=== PATIENT | male | born 1960 | race African-American/Black ===

== ENCOUNTER 2018-04-24 19:17 | Emergency (ER) | payer BC ==
[2018-04-24 19:24] VITALS: TEMP 98; BMI 47.3
--- NOTE | 2018-04-24 19:26 | PDOC ---
Rapid Medical Evaluation Time Seen by Provider: 04/24/18 19:20 Medical Evaluation: 04/24/18 19:21 I have performed a brief in-person evaluation of this patient. The patient presents with a chief complaint of: "cyst" to L chest x 2 days, ruptured spontaneously today w/ sig pus per pt. No trauma to area, denies f/c. H /o HTN Pertinent physical exam findings:Tachy to 130 w/ large area of cellulitis to L chest I have ordered the following:labs The patient will proceed to the ED for further evaluation. Discharge Disposition - Diagnosis Cellulitis Qualifiers: Site of cellulitis: unspecified site Qualified Code(s): L03.90 - Cellulitis, unspecified - Referrals - Patient Instructions - Post Discharge Activity
[2018-04-24 19:58] LABS: BASO % 1.5 % (0-2.0); EOS % 2.6 % (0-4.5); HEMATOCRIT 42.3 % (35.4-49); HEMOGLOBIN 14.6 GM/dL (11.7-16.9); LYMPH % 13.9 % (8-40); MCH 30.3 pg (25.7-33.7); MCHC 34.5 g/dl (32.0-35.9); MEAN PLT VOLUME 8.9 fl (7.5-11.1); PLATELET COUNT 221 K/MM3 (134-434); RBC 4.81 M/mm3 (4.00-5.60); RDW 13.5 % (11.9-15.9); WHITE BLOOD COUNT 15.4 K/mm3 (4.0-10.0)
--- NOTE | 2018-04-24 20:23 | PDOC ---
History of Present Illness - General History Source: Patient Exam Limitations: No Limitations - History of Present Illness Initial Comments: 04/24/18 20:22 Pt is a 58yo M with PMH of Asthma presenting to ED with complaints of draining abscess on the L side of the abdomen. Pt states he noticed a small boil on the side of his abdomen 2 days ago. He states that it started draining last night and has not stopped. He denies having a boil like this in the past. Endorses chills. Denies fevers, abdominal pain, other abscesses, history of HIV, IV drug use, injury, bug bites, trauma. PMH: see hpi Meds: albuterol, prednisone <Yoselyn Madrid - Last Filed: 04/25/18 01:09> <Irais Stark - Last Filed: 04/27/18 12:26> - General Chief Complaint: Abscess Boil Stated Complaint: CYST Time Seen by Provider: 04/24/18 19:20 Past History - Past Medical History Anemia: Yes COPD: No HTN: Yes - Suicide/Smoking/Psychosocial Hx Smoking History: Never smoked <Yoselyn Madrid - Last Filed: 04/25/18 01:09> <Irais Stark - Last Filed: 04/27/18 12:26> - Past Medical History Allergies/Adverse Reactions: Allergies Allergy/AdvReac Type Severity Reaction Status Date / Time No Known Allergies Allergy Verified 04/24/18 19:25 Home Medications: Ambulatory Orders Cephalexin Monohydrate [Keflex -] 500 mg PO QID #40 capsule 04/24/18 Sulfamethoxazole/Trimethoprim [Bactrim Ds -] 1 tab PO BID #20 tablet 04/24/18 Review of Systems - Review of Systems Constitutional: Yes: Chills. No: Fever, Loss of Appetite, Weakness HEENTM: No: Symptoms Reported Respiratory: No: Cough, Shortness of Breath Cardiac (ROS): No: Chest Pain, Edema, Lightheadedness, Palpitations ABD/GI: No: Blood Streaked Bowels, Constipated, Diarrhea, Nausea, Vomiting, Abdominal cramping : No: Symptoms Reported Musculoskeletal: No: Symptoms Reported Integumentary: Yes: Symptoms Reported, Other (abscess with drainage x 2 days) Neurological: No: Symptoms reported <Yoselyn Madrid - Last Filed: 04/25/18 01:09> *Physical Exam - Vital Signs Last Vital Signs Temp Pulse Resp BP Pulse Ox 98.0 F 125 H 18 130/83 95 04/24/18 19:21 04/24/18 19:21 04/24/18 19:21 04/24/18 19:21 04/24/18 19:21 - Physical Exam General Appearance: Yes: Appropriately Dressed, Obese. No: Apparent Distress HEENT: positive: EOMI, CONNIE, Normal ENT Inspection Neck: positive: Trachea midline, Supple. negative: Lymphadenopathy (R), Lymphadenopathy (L) Respiratory/Chest: positive: Lungs Clear, Normal Breath Sounds. negative: Crackles, Rales, Rhonchi, Stridor, Wheezing Cardiovascular: positive: Regular Rate, S1, S2, Tachycardia. negative: Edema, JVD, Murmur Vascular Pulses: Carotid (R): 2+, Carotid (L): 2+, Dorsalis-Pedis (R): 2+, Doralis-Pedis (L): 2+ Gastrointestinal/Abdominal: positive: Soft, Protuberent. negative: Pulsatile Mass, Distended, Guarding, Rebound, Tenderness, Mass Musculoskeletal: positive: Normal Inspection. negative: CVA Tenderness Extremity: positive: Normal Capillary Refill Integumentary: positive: Normal Color, Dry, Warm, Other (1mm lesion with active drainage of pus with surrounding desquamation and erythema. Firm border, no fluctuance. ) Neurologic: positive: manager program II-XII NML intact, Fully Oriented, Alert, Normal Mood/ Affect, Normal Response, Motor Strength 5/5 <Yoselyn Madrid - Last Filed: 04/25/18 01:09> - Vital Signs Last Vital Signs Temp Pulse Resp BP Pulse Ox 98.0 F 108 H 18 134/92 95 04/24/18 19:21 04/24/18 22:28 04/24/18 19:21 04/24/18 22:29 04/24/18 22:29 <Irais Stark - Last Filed: 04/27/18 12:26> Moderate Sedation - Procedure Monitoring Vital Signs: Procedure Monitoring Vital Signs Temperature 98.0 F 04/24/18 19:21 Pulse Rate 125 H 04/24/18 19:21 Respiratory Rate 18 04/24/18 19:21 Blood Pressure 130/83 04/24/18 19:21 O2 Sat by Pulse Oximetry (%) 95 04/24/18 19:21 <Yoselyn Madrid - Last Filed: 04/25/18 01:09> - Procedure Monitoring Vital Signs: Procedure Monitoring Vital Signs Temperature 98.0 F 04/24/18 19:21 Pulse Rate 108 H 04/24/18 22:28 Respiratory Rate 18 04/24/18 19:21 Blood Pressure 134/92 04/24/18 22:29 O2 Sat by Pulse Oximetry (%) 95 04/24/18 22:29 <Irais Stark - Last Filed: 04/27/18 12:26> Procedures - Incision and Drainage I&D Site: Left: Torso, Abdomen Betadine cleansed: No Anesthesia: 1% Lidocaine Volume(ml): 5 Blade Size: 11 Attempts: 1 Plain Packing: No Complications: none Dressing: Yes Progress: 04/27/18 12:26 copious purulence expelled, deloculated with hemostat. <Irais Stark - Last Filed: 04/27/18 12:26> ED Treatment Course - LABORATORY CBC & Chemistry Diagram: 04/24/18 19:35 04/24/18 19:35 - ADDITIONAL ORDERS Additional order review: 04/24/18 19:35 RBC 4.81 MCV 88.0 MCHC 34.5 RDW 13.5 MPV 8.9 Neutrophils % 74.0 Lymphocytes % 13.9 Monocytes % 8.0 Eosinophils % 2.6 Basophils % 1.5 <Yoselyn Madrid - Last Filed: 04/25/18 01:09> - LABORATORY CBC & Chemistry Diagram: 04/24/18 19:35 04/24/18 19:35 - ADDITIONAL ORDERS Additional order review: 04/24/18 20:01 Gram Stain - Final Abscess Wound Culture - Final Presumptive Mrsa (Pbp2a Pos) 04/24/18 20:01 Gram Stain - Final Abscess Wound Culture - Final Mr S Aureus 04/24/18 19:35 RBC 4.81 MCV 88.0 MCHC 34.5 RDW 13.5 MPV 8.9 Neutrophils % 74.0 Lymphocytes % 13.9 Monocytes % 8.0 Eosinophils % 2.6 Basophils % 1.5 - Medications Given in the ED: ED Medications Discontinued Medications Generic Name Dose Route Start Last Admin Trade Name Freq PRN Reason Stop Dose Admin Acetaminophen 975 mg 04/24/18 22:18 04/24/18 22:25 Tylenol - PO 04/24/18 22:19 975 mg ONCE ONE Administration Cephalexin HCl 500 mg 04/24/18 21:58 04/24/18 22:25 Keflex - PO 04/24/18 21:59 500 mg ONCE ONE Administration Sodium Chloride 1,000 mls @ 1,000 mls/hr 04/24/18 22:18 04/24/18 22:25 Normal Saline - IV 04/24/18 23:17 Not Given ASDIR STA Ibuprofen 600 mg 04/24/18 21:20 04/24/18 21:23 Motrin - PO 04/24/18 21:21 600 mg ONCE ONE Administration Trimethoprim/Sulfamethoxazole 1 each 04/24/18 21:58 04/24/18 22:24 Bactrim Ds - PO 04/24/18 21:59 1 each ONCE ONE Administration <Irais Stark - Last Filed: 04/27/18 12:26> Medical Decision Making - Medical Decision Making 04/25/18 01:13 Pt is a 58yo M with PMH of Asthma presenting to ED with complaints of draining abscess on the L side of the abdomen. Vitals: afebrile, HR 125. PE: circular area of blanching erythema on LUQ of abdomen with inner circumscribed desquamated region (due to friction) and small area of drainage. Firm. No fluctuance. CBC and CMP ordered by RME. Pt has WBC of 15. Blood cultures and sepsis work up not necessary at this time. Order was placed but cancelled. Pt is well appearing and afebrile. WBC is most likely from abscess which feels superficial and is not causing great discomfort to the patient. Purulent material expressed. Pt given Motrin. POCUS showed irregular border of abscess. I+D performed. Pt given Tylenol, Bactrim and Keflex in ED. Pt refused IV fluids. Repeat vitals showed pt still slightly tachycardic. Otherwise vitals wnl. Rx for Bactrim and Keflex sent to pharmacy. Cultures obtained. Pt DC home. Will follow up in ED in 2 days. Given strict return precautions. <Yoselyn Madrid - Last Filed: 04/25/18 01:09> *DC/Admit/Observation/Transfer - Discharge Dispostion Decision to Admit order: No <Yoselyn Madrid - Last Filed: 04/25/18 01:09> <Irais Stark - Last Filed: 04/27/18 12:26> Diagnosis at time of Disposition: Abscess Cellulitis Qualifiers: Site of cellulitis: unspecified site Qualified Code(s): L03.90 - Cellulitis, unspecified - Discharge Dispostion Disposition: HOME Condition at time of disposition: Improved - Prescriptions Prescriptions: Cephalexin Monohydrate [Keflex -] 500 mg PO QID #40 capsule Sulfamethoxazole/Trimethoprim [Bactrim Ds -] 1 tab PO BID #20 tablet - Patient Instructions Printed Discharge Instructions: DI for Skin Abscess Additional Instructions: You were seen in the emergency room today for an abscess. We opened up the abscess more to help it drain. You were given antibiotics here in the emergency room and a prescription was sent to your pharmacy. You have two antibiotics. Please take as directed for 10 days. Please stop taking it if you develop a rash or have a reaction to the medication. Come back to the emergency room in two days for wound check. You can take Tylenol or ibuprofen for pain as needed Come back to the emergency room if the redness gets worse, there is more swelling, the wound looks more infected, you develop fever or if any new concerning symptom develops. Thank you
[2018-04-24 20:43] LABS: ALBUMIN 3.4 g/dl (3.4-5.0); ALK PHOS 84 U/L (45-117); ANION GAP 10 MMOL/L (8-16); BILIRUBIN,TOTAL 1.3 mg/dL (0.2-1); BLOOD UREA NITROGEN 12 mg/dL (7-18); CALCIUM 8.7 mg/dL (8.5-10.1); CHLORIDE 106 mmol/L (98-107); CO2 25 mmol/L (21-32); GLUCOSE,RANDOM 92 mg/dL (74-106); SGPT/ALT 28 U/L (13-61); SODIUM 141 mmol/L (136-145); TOT PROT 6.9 g/dl (6.4-8.2)
[2018-04-24 20:44] LABS: POTASSIUM 3.7 mmol/L (3.5-5.1); SGOT/AST 29 U/L (15-37)
[2018-04-24] MEDS ORDERED: IBUPROFEN 600 MG TABLET (FP) PO ONE ×2 (21:20→21:24)
--- NOTE | 2018-04-24 21:21 | PDOC ---
Attending Attestation - Resident Resident Name: Yoselyn Madrid - ED Attending Attestation I have performed the following: I have examined & evaluated the patient, The case was reviewed & discussed with the resident, I agree w/resident's findings & plan - HPI HPI: 04/24/18 21:54 58YOM, with a significant past medical history of asthma and HTN, who presents to the emergency department with, 2 days of an abscess to the left upper- abdomen with associated mild chills, but no fever. Patient notes the abscess has since ruptured draining purulent discharge, prompting his arrival. He denies any recent fevers, headache or dizziness. He denies any recent nausea , vomit, diarrhea or constipation. He denies any recent chest pain or shortness of breath. He denies any recent dysuria, frequency, urgency or hematuria. No sick contacts or travel. No new changes in medications. no trauma or insect bites. Allergies: None Past Medical History: asthma and HTN Social history: Lives with family. No tobacco, ETOH or drug use. Surgical history: None - Physicial Exam PE: 04/24/18 21:55 NAD, well appearing, nontoxic. PERRL, EOMI, MMM, nl conjunctiva, anicteric; neck supple. lungs clear, RRR, abdomen soft nontender. +LUQ/abdomen with Moderately sized of area of induration, firmness, erythema, and purulent discharge with surrounding cellulitis and superficial desquamation. GOODSON x4, no focal neuro deficits. No peripheral edema. normal color for ethnicity, WWP. - Medical Decision Making 04/24/18 21:55 hpi as documented VS with tachycardia; otherwise wnl, no fever. does not appear septic labs and lytes remarkable for leukocytosis, which goes with the left upper abdomen cellulitis/actively draining abscess. given motrin for pain. bedside soft tissue sono for abscess in left upper abdomen, notable for soft tissue edema and hypoechoic area and fluid collection. some cobblestoning. consistent with abscess/cellulitis that could be MRSA (so will cover) bactrim and keflex x 10 day course I&D performed at bedside to facilitate the drainage. wound cultures obtained. uncomplicated procedure VS improved on recheck. remains comfortable, pain control and well appearing. ED return in 2 days for wound recheck, f/u cultures obtained 04/24/18 22:08 04/24/18 22:10 04/24/18 22:15 Procedures - Bedside Ultrasound Bedside Ultrasound: Skin Remarks: 04/24/18 22:13 POCUS MSK performed at bedside for left upper abdomen cellulitis/s/s infection. views obtained: left upper abdomen soft tissue. findings include cobblestoning and small fluid/hypoechoic collection with irregular borders. Impression: left upper abdomen abscess/cellulitis
[2018-04-24] MEDS ORDERED: SULFAMETHOXAZOLE/TRIMETHOPRIM 800MG/160MG D.S. TABLET PO ONE (21:58)
[2018-04-24] MEDS ORDERED: CEPHALEXIN MONOHYDRATE 500 MG CAPSULE (UD) PO ONE (21:58)
[2018-04-24] MEDS ORDERED: SODIUM CHLORIDE 1,000 ML IV STA (22:18)
[2018-04-24] MEDS ORDERED: ACETAMINOPHEN 500 MG TABLET (FP) PO ONE (22:18)
[2018-04-24] MEDS ORDERED: ACETAMINOPHEN 325 MG TABLET (FP) ONE (22:22)
[2018-04-24] MEDS ORDERED: SULFAMETHOXAZOLE/TRIMETHOPRIM 800MG/160MG D.S. TABLET ONE (22:22)
[2018-04-24] MEDS ORDERED: CEPHALEXIN MONOHYDRATE 500 MG CAPSULE (UD) ONE (22:22)
[2018-04-24 22:28] VITALS: PULSE 108
[2018-04-24 22:30] VITALS: BP 134/92
== END 2018-04-24 23:07 | disposition home or self-care (01) ==
LOC: JER 19:17
PROC: BH49ZZZ Ultrasonography of Abdominal Wall (ICD-10-PCS; principal; 2018-04-24)
PROC: 0H97XZZ Drainage of Abdomen Skin, External Approach (ICD-10-PCS; 2018-04-24)
DX: L03.311 Cellulitis of abdominal wall (principal); L02.211 Cutaneous abscess of abdominal wall
CPT/HCPCS: 10060; 36415; 76705; 80053; 85025; 87070; 87186; 87205; 99282-25

== ENCOUNTER 2018-05-06 08:33 | Emergency (ER) | payer BC ==
[2018-05-06 08:46] VITALS: BP 140/86; PULSE 96; TEMP 98.7; BMI 43.0
--- NOTE | 2018-05-06 08:53 | PDOC ---
History of Present Illness - General Chief Complaint: Wound Stated Complaint: BUMP LEFT SIDE Time Seen by Provider: 05/06/18 08:48 Past History - Past Medical History Allergies/Adverse Reactions: Allergies Allergy/AdvReac Type Severity Reaction Status Date / Time No Known Allergies Allergy Verified 05/06/18 08:45 Home Medications: Ambulatory Orders Cephalexin Monohydrate [Keflex -] 500 mg PO BID #14 capsule 05/06/18 Ibuprofen 800 mg PO TID #30 tablet 05/06/18 Sulfamethoxazole/Trimethoprim [Bactrim Ds -] 1 tab PO BID #14 tablet 05/06/18 Anemia: Yes COPD: No CHF: No HTN: Yes - Suicide/Smoking/Psychosocial Hx Smoking History: Unknown if ever smoked Have you smoked in the past 12 months: No Information on smoking cessation initiated: No Hx Alcohol Use: No Drug/Substance Use Hx: No *Physical Exam - Vital Signs Last Vital Signs Temp Pulse Resp BP Pulse Ox 98.7 F 96 H 16 140/86 99 05/06/18 08:35 05/06/18 08:35 05/06/18 08:35 05/06/18 08:35 05/06/18 08:35 Moderate Sedation - Procedure Monitoring Vital Signs: Procedure Monitoring Vital Signs Temperature 98.7 F 05/06/18 08:35 Pulse Rate 96 H 05/06/18 08:35 Respiratory Rate 16 05/06/18 08:35 Blood Pressure 140/86 05/06/18 08:35 O2 Sat by Pulse Oximetry (%) 99 05/06/18 08:35 *DC/Admit/Observation/Transfer Diagnosis at time of Disposition: Cellulitis Qualifiers: Site of cellulitis: trunk Site of cellulitis of trunk: chest wall Qualified Code(s): L03.313 - Cellulitis of chest wall - Discharge Dispostion Disposition: HOME Condition at time of disposition: Stable Decision to Admit order: No - Referrals Referrals: Luis F Street MD [Staff Physician] - Edie Collado MD [Staff Physician] - - Patient Instructions Printed Discharge Instructions: DI for Cellulitis -- Adult Additional Instructions: You have cellulitis. This is a skin infection. Please take the Bactrim and Keflex twice a day for one week. Please take all the antibiotics even if you feel better. You may use warm water soaks to the area. Please do this approximately 4-5 times a day. Please avoid shaving the skin around the area of redness. You may take Tylenol or Motrin as needed for pain. Please follow up with a surgeon and with infection disease. Referrals have been provided. Return to the emergency department if you have worsening redness, fevers, increasing pain, or have any changes in your symptoms. - Post Discharge Activity Forms/Work/School Notes: Back to Work
[2018-05-06] MEDS ORDERED: IBUPROFEN 400 MG TABLET (FP) PO ONE ×2 (09:35→09:38)
== END 2018-05-06 09:40 | disposition home or self-care (01) ==
LOC: JERFT 08:33
DX: L03.313 Cellulitis of chest wall (principal); I10 Essential (primary) hypertension
CPT/HCPCS: 99281-25

== ENCOUNTER 2018-08-21 13:01 | Emergency (ER) | payer BC ==
[2018-08-21] MEDS ORDERED: ALBUTEROL SO4 2.5/IPRATROPIUM 0.5 INH SOL 3 ML VIAL.NEB. NEB ONE (13:12)
[2018-08-21 13:13] VITALS: BMI 44.4
[2018-08-21] MEDS: ALBUTEROL SO4 2.5/IPRATROPIUM 0.5 INH SOL 3 ML VIAL.NEB. NEB SCH ×4 (13:19→14:18)
[2018-08-21] MEDS ORDERED: methylPREDNISolone NA SUCC 40 MG/1 ML VIAL IVPUSH ONE (13:32)
[2018-08-21] MEDS ORDERED: methylPREDNISolone NA SUCC 125 MG/2 ML VIAL ONE (13:33)
[2018-08-21] MEDS ORDERED: predniSONE 20 MG TABLET (UD) ONE (13:36)
[2018-08-21] MEDS ORDERED: predniSONE 20 MG TABLET (UD) PO ONE (13:43)
--- NOTE | 2018-08-21 14:10 | PDOC ---
History of Present Illness - General Chief Complaint: Shortness of Breath Stated Complaint: SHORTNESS OF BREATH Time Seen by Provider: 08/21/18 13:03 History Source: Patient Exam Limitations: No Limitations - History of Present Illness Initial Comments: 08/21/18 14:09 58YOM, with a significant past medical history of asthma, 7 pack year hx of smoking and HTN presents to the ED for increased WOB, SOB, cough and fevers. Pt states he was on daily prednisone, ran out of it 3 weeks ago and has not picked up a refill. Pt admits to 3 days of worsening SOB, cough with clear sputum production, fevers and nausea without vomiting. Denies recent travel, sick contacts, CP, back pain, abdominal pain, changes in bowel or bladder habits. Past History - Past Medical History Allergies/Adverse Reactions: Allergies Allergy/AdvReac Type Severity Reaction Status Date / Time No Known Allergies Allergy Verified 08/21/18 13:13 Home Medications: Ambulatory Orders Albuterol 0.083% Nebulizer Shanita [Ventolin 0.083% Nebulizer Soln -] 1 amp NEB PRN 08/21/18 Albuterol Sulfate Inhaler - [Ventolin Hfa Inhaler -] 1 - 2 inh PO QID PRN Benzonatate [Tessalon Pearls -] 100 mg PO TID #21 capsule 08/21/18 Prednisone [Prednisone 50 MG TABLETS] 50 mg PO ONCE #4 tablet 08/21/18 Anemia: Yes COPD: No CHF: No HTN: Yes - Suicide/Smoking/Psychosocial Hx Smoking History: Unknown if ever smoked Have you smoked in the past 12 months: No Information on smoking cessation initiated: No Hx Alcohol Use: No Drug/Substance Use Hx: No *Physical Exam - Vital Signs Last Vital Signs Temp Pulse Resp BP Pulse Ox 98.0 F 118 H 26 H 131/77 100 08/21/18 13:09 08/21/18 13:09 08/21/18 13:09 08/21/18 13:09 08/21/18 13:09 ED Treatment Course - LABORATORY CBC & Chemistry Diagram: 08/21/18 14:10 08/21/18 14:10 - RADIOLOGY Radiology Studies Ordered: Category Date Time Status CHEST X-RAY PORTABLE* [RAD] Stat Radiology 08/21/18 13:38 Ordered - Medications Given in the ED: ED Medications Discontinued Medications Generic Name Dose Route Start Last Admin Trade Name Manjinder PRN Reason Stop Dose Admin Albuterol/Ipratropium 1 amp 08/21/18 13:15 08/21/18 13:48 Duoneb - NEB 08/21/18 14:01 1 amp Q15M RONDA Administration Methylprednisolone Sodium Succinate 60 mg 08/21/18 13:32 08/21/18 13:48 Solu-Medrol - IVPUSH 08/21/18 13:33 Not Given ONCE ONE Prednisone 60 mg 08/21/18 13:43 08/21/18 13:48 Deltasone - PO 08/21/18 13:44 60 mg ONCE ONE Administration Medical Decision Making - Medical Decision Making 08/21/18 15:14 pt improved after duonebs and oral prednisone wheezing improved, Safe for DC home with PCP f/u for further care and likely continue prescription of prednisone *DC/Admit/Observation/Transfer Diagnosis at time of Disposition: Asthma exacerbation - Discharge Dispostion Disposition: HOME Condition at time of disposition: Stable Decision to Admit order: No - Prescriptions Prescriptions: Benzonatate [Tessalon Pearls -] 100 mg PO TID #21 capsule Prednisone [Prednisone 50 MG TABLETS] 50 mg PO ONCE #4 tablet - Referrals - Patient Instructions Printed Discharge Instructions: DI for Asthma -- Adult Additional Instructions: Please see your Primary Doctor within the next 48 hours to have your breathing reassessed and likely have a refill prescription of your steroids. Take the medications sent to your pharmacy as prescribed for coughing and breathing. Return to the ER for new or concerning symptoms including but not limited to: high fevers, chest pain, continued difficulty breathing, lethargy. Thank you - Post Discharge Activity
[2018-08-21 14:25] LABS: BASO % 0.9 % (0-2.0); EOS % 5.2 % (0-4.5); HEMATOCRIT 40.6 % (35.4-49); HEMOGLOBIN 13.7 GM/dL (11.7-16.9); LYMPH % 17.4 % (8-40); MCHC 33.8 g/dl (32.0-35.9); MEAN CELL VOLUME 88.9 fl (80-96); MEAN PLT VOLUME 8.9 fl (7.5-11.1); MONO % 7.9 % (3.8-10.2); NEUT % 68.6 % (42.8-82.8); PLATELET COUNT 174 K/MM3 (134-434); RBC 4.56 M/mm3 (4.00-5.60); RDW 13.7 % (11.9-15.9)
[2018-08-21 14:48] LABS: ALBUMIN 3.3 g/dl (3.4-5.0); BILIRUBIN,TOTAL 0.6 mg/dL (0.2-1); CREATININE 0.9 mg/dL (0.55-1.3); POTASSIUM 3.4 mmol/L (3.5-5.1); TOT PROT 6.1 g/dl (6.4-8.2)
[2018-08-21 15:04] VITALS: BP 136/77; PULSE 98; TEMP 98
--- NOTE | 2018-08-21 15:16 | PDOC ---
Documentation entered by Belle Paula SCRIBE, acting as scribe for Casa Davies MD. Casa Davies MD: This documentation has been prepared by the Nisa dunn Daisy, SCRIBE, under my direction and personally reviewed by me in its entirety. I confirm that the documentation accurately reflects all work, treatment, procedures, and medical decision making performed by me. Attending Attestation - Resident Resident Name: Joey Cox - ED Attending Attestation I have performed the following: I have examined & evaluated the patient, The case was reviewed & discussed with the resident, I agree w/resident's findings & plan, Exceptions are as noted - HPI HPI: 08/21/18 13:32 The patient is a 58YOM with a PMH of HTN and COPD who presents to the ER for shortness of breath, cough, and subjective fever. Pt states he feels like he is having an asthma flare. Patient has tried used multiple nebs and his inhaler at home with minimal relief. Patient usually takes prednisone 25mg PO daily but ran out 2 weeks ago. Not currently on home oxygen. Patient has not required prior intubations. He states this feels like his normal asthma/COPD flare-ups. Allergies: NKDA Social Hx: Current smoker - Physicial Exam PE: 08/21/18 15:13 GENERAL: Awake, alert, and fully oriented, in no acute distress. HEAD: No signs of trauma EYES: PERRLA, EOMI, sclera anicteric, conjunctiva clear ENT: Auricles normal inspection, hearing grossly normal, nares patent, oropharynx clear without exudates. Moist mucosa NECK: Nontender, no stepoffs, Normal ROM, supple, no lymphadenopathy, JVD, or masses LUNGS: + bilateral expiratory wheezes HEART: Regular rate and rhythm, normal S1 and S2, no murmurs, rubs or gallops ABDOMEN: Soft, nontender, normoactive bowel sounds. No guarding, no rebound. No masses EXTREMITIES: Normal range of motion, no edema. No clubbing or cyanosis. No cords, erythema, or tenderness NEUROLOGICAL: Cranial nerves II through XII intact. 5/5 strength and sensation in all extremities, Normal speech, normal gait, normal cerebellar function SKIN: Warm, Dry, normal turgor, no rashes or lesions noted. - Medical Decision Making 08/21/18 15:14 58 M with SOB, cough. Wheezing on exam, consistent with COPD/asthma flare. Pt with no chest pain to suggest ACS. No evidence of volume overload. No PE risk factors. - Labs, trop, BNP - CXR - nebs, steroids Pt reassessed after nebs and steroids, now states he feels completely better Lung exam now with no wheezing, completely clear Pt ambulatory in ED with stable O2 sat Pt is well appearing, with normal vitals. Clinically stable for DC at this time. I discussed the physical exam findings, ancillary test results and final diagnoses with the patient. I answered all of the patient's questions. The patient was satisfied with the care received and felt comfortable with the discharge plan and treatment plan. The patient agrees to follow up with the primary care physician within 24-72 hours.
== END 2018-08-21 15:37 | disposition home or self-care (01) ==
LOC: JER 13:01
PROC: 3E0F7GC Introduction of Other Therapeutic Substance into Respiratory Tract, Via Natural or Artificial Opening (ICD-10-PCS; principal; 2018-08-21)
DX: J45.901 Unspecified asthma with (acute) exacerbation (principal); I10 Essential (primary) hypertension; F17.210 Nicotine dependence, cigarettes, uncomplicated
CPT/HCPCS: 36415; 71045-TC-FY; 80053; 85025; 94640; 99282-25

== ENCOUNTER 2018-09-25 20:59 | Emergency (ER) | payer BC ==
--- NOTE | 2018-09-25 21:07 | PDOC ---
Rapid Medical Evaluation Time Seen by Provider: 09/25/18 21:05 Medical Evaluation: Allergies Allergy/AdvReac Type Severity Reaction Status Date / Time No Known Allergies Allergy Verified 08/21/18 13:13 09/25/18 21:05 I have performed a brief in-person evaluation of this patient. The patient presents with a chief complaint of: SOB w/ tightness and wheezing today, ran out of rescue inhaler today. using nebs today w/ no relief. H/o asthma/COPD, continues to smoke, HTN, dx w/ ? afib 2 weeks ago at [facility] blood thinners and his other meds were sent to pharmacy but that pharmacy never received rx so pt not currently taking any meds. Pertinent physical exam findings:Sating 95% on RA and breathing at 22 w/ ?trace wheeze I have ordered the following:labs/ekg/cxr The patient will proceed to the ED for further evaluation. Discharge Disposition - Diagnosis SOB (shortness of breath) - Referrals - Patient Instructions - Post Discharge Activity
[2018-09-25 21:09] VITALS: BP 153/83; PULSE 85; TEMP 98.4; BMI 42.7
--- NOTE | 2018-09-25 21:40 | PDOC ---
History of Present Illness - General Chief Complaint: Shortness of Breath Stated Complaint: SOB Time Seen by Provider: 09/25/18 21:05 History Source: Patient Exam Limitations: No Limitations - History of Present Illness Initial Comments: 09/25/18 21:33 [id number] with h/o asthma (last steroids about 1 month ago, triggered by perfumes/ chemicals, distantly admitted to the ICU for asthma but never intubated), HTN, and HLD who p/w SOB and wheezing for the past two days, significantly worse today. The patient notes that he ran out of his albuterol MDI some time ago, and ran out of his nebulizer treatments today. He noted cough productive of yellow sputum, SOB, and wheezing worsening today. Denies f/c/n/v/d/c, chest pain , abdominal pain, lightheadedness LOC, or any other symptoms. Has previously needed antibiotics for bronchitis/PNA but not in the past year. He also mentions in passing that he was recently diagnosed at [facility] with a heart arrhythmia (states heart occasionally beats too fast) and was supposed to start blood thinners but has not been able to get them from the pharmacy. Past History - Past Medical History Allergies/Adverse Reactions: Allergies Allergy/AdvReac Type Severity Reaction Status Date / Time No Known Allergies Allergy Verified 09/25/18 21:09 Home Medications: Ambulatory Orders Albuterol 0.083% Nebulizer Shanita [Ventolin 0.083% Nebulizer Soln -] 1 amp NEB PRN 08/21/18 Albuterol Sulfate Inhaler - [Ventolin Hfa Inhaler -] 1 - 2 inh PO QID PRN Benzonatate [Tessalon Pearls -] 100 mg PO TID #21 capsule 08/21/18 Prednisone [Prednisone 50 MG TABLETS] 50 mg PO ONCE #4 tablet 08/21/18 Fluticasone/Salmeterol [Advair 250-50 Diskus] 1 each IH BID #1 inhaler 09/25/18 Anemia: Yes Cardiac Disorders: Yes (AFIB) COPD: Yes CHF: No HTN: Yes - Suicide/Smoking/Psychosocial Hx Smoking History: Current every day smoker Have you smoked in the past 12 months: No Number of Cigarettes Smoked Daily: 10 Information on smoking cessation initiated: Yes Hx Alcohol Use: No Drug/Substance Use Hx: No Review of Systems - Review of Systems Able to Perform ROS?: Yes Comments:: 09/25/18 21:51 GEN: no fever, chills, malaise, generalized weakness, or weight change HEENT: no ear pain, sore throat, vision change, or eye pain CV: no chest pain, palpitations, lightheadedness, syncope, or edema RESP: cough, wheezing, SOB GI: no abdominal pain, nausea, vomiting, diarrhea, constipation, or white/black/ bloody stool : no dysuria, hematuria, incontinence, retention, bleeding, or discharge MSK: no neck/back pain, muscle weakness/pain, or joint swelling/pain NEURO: no headache, seizure, vertigo, numbness, tingling, or focal weakness PSYCH: no substance use, no behavior change SKIN: no jaundice, no rash ROS otherwise negative except as noted in HPI *Physical Exam - Vital Signs Last Vital Signs Temp Pulse Resp BP Pulse Ox 98.4 F 85 22 H 153/83 95 09/25/18 21:07 09/25/18 21:07 09/25/18 21:07 09/25/18 21:07 09/25/18 21:07 - Physical Exam Comments: GENERAL: nontoxic and well-appearing, tachypneic but speaking full sentences, A/ Ox4, no distress, answers questions appropriately, morbidly obese. HEENT: PERRLA, EOMI, moist mucous membranes NECK/BACK: no midline ttp, no spinal stepoff or deformity, no hematoma, full ROM , neck supple CARDIOVASCULAR: regular rate/rhythm, normal S1S2, no MGR, strong peripheral pulses, capillary refill <2 seconds, extremities wwp, no edema LUNGS/RESPIRATORY: no respiratory distress, poor air movement bilaterally faint expiratory wheezes GI/ABDOMEN: symmetric [id number], normoactive BS, soft, no ttp, no midline pulsatile masses : no CVA tenderness EXTREMITIES: no muscle atrophy, no acute deformity SKIN: warm and dry, no pallor, no jaundice, no rash, no bruising, no skin breakdown, no cuts, no lesions NEUROLOGICAL: GCS 15, CN II-XII grossly intact, 5/5 strength proximally and distally, no facial droop Heart Score/ECG Review #1 Sinus rhythm, rate 95, normal axis and intervals, no ST-T changes ED Treatment Course - LABORATORY CBC & Chemistry Diagram: 09/25/18 22:13 09/25/18 22:13 Medical Decision Making - Medical Decision Making 09/25/18 21:46 58YOM with h/o asthma p/w cough, SOB, wheezing like their prior asthma exacerbation. No reported h/o asthma resulting in intubation, PTX, seizure, LOC, hypercapnia, acidosis, etc. Initial Vital Signs Temp Pulse Resp BP Pulse Ox 98.4 F 85 22 H 153/83 95 09/25/18 21:07 09/25/18 21:07 09/25/18 21:07 09/25/18 21:07 09/25/18 21:07 Exam: As noted in Physical Exam section. DDX IBNLT: asthma exacerbation, COPD, bronchitis, viral URI, influenza, PNA, PTX , CHF, ACS, pericarditis W/U ordered: Labs as noted below CXR EKG TX ordered: DuoNebs SoluMedrol EKG: Reviewed; results as noted in ECG Review section. Laboratory Tests 09/25/18 09/25/18 09/25/18 22:13 22:13 22:13 WBC 9.3 RBC 4.68 Hgb 14.1 Hct 41.1 MCV 87.8 MCH 30.2 MCHC 34.4 RDW 13.5 Plt Count 247 D MPV 8.4 Absolute Neuts (auto) 5.7 Neutrophils % 61.4 Lymphocytes % 25.7 D Monocytes % 8.4 Eosinophils % 3.2 Basophils % 1.3 Nucleated RBC % 0 Sodium 144 Potassium 3.9 Chloride 112 H Carbon Dioxide 26 Anion Gap 5 L BUN 7.8 Creatinine 1.1 Est GFR (CKD-EPI)AfAm 85.31 Est GFR (CKD-EPI)NonAf 73.61 Random Glucose 97 Calcium 8.5 Total Bilirubin 0.6 AST 25 ALT 27 Alkaline Phosphatase 93 Creatine Kinase 313 H Troponin I 0.02 B-Natriuretic Peptide 97.6 Total Protein 6.8 Albumin 3.5 Urine Color Urine Appearance Urine pH Ur Specific L[place] Urine Protein Urine Glucose (UA) Urine Ketones Urine Blood Urine Nitrite Urine Bilirubin Urine Urobilinogen Ur Leukocyte Esterase 09/25/18 22:15 WBC RBC Hgb Hct MCV MCH MCHC RDW Plt Count MPV Absolute Neuts (auto) Neutrophils % Lymphocytes % Monocytes % Eosinophils % Basophils % Nucleated RBC % Sodium Potassium Chloride Carbon Dioxide Anion Gap BUN Creatinine Est GFR (CKD-EPI)AfAm Est GFR (CKD-EPI)NonAf Random Glucose Calcium Total Bilirubin AST ALT Alkaline Phosphatase Creatine Kinase Troponin I B-Natriuretic Peptide Total Protein Albumin Urine Color Yellow Urine Appearance Clear Urine pH 6.5 Ur Specific [place] 1.013 Urine Protein Negative Urine Glucose (UA) Negative Urine Ketones Negative Urine Blood Negative Urine Nitrite Negative Urine Bilirubin Negative Urine Urobilinogen 1.0 Ur Leukocyte Esterase Negative Reassessment: Patient states feeling much better. 09/25/18 23:32 The patient cannot be found in the emergency department; we are informed he has eloped. He was given a dose of steroid medication and an albuterol MDI with ~80 puffs. Unfortunately we cannot confirm his pharmacy or send E-Rx. CXR was not performed before patient eloped. *DC/Admit/Observation/Transfer Diagnosis at time of Disposition: Asthma exacerbation Qualifiers: Asthma severity: unspecified severity Asthma persistence: unspecified Qualified Code(s): J45.901 - Unspecified asthma with (acute) exacerbation - Discharge Dispostion Disposition: ELP Condition at time of disposition: Improved - Prescriptions Prescriptions: Fluticasone/Salmeterol [Advair 250-50 Diskus] 1 each IH BID #1 inhaler - Referrals Referrals: Cornell Leal [Primary Care Provider] - Dick Pedraza MD [Staff Physician] - Albaro Hess MD [Staff Physician] - - Patient Instructions Printed Discharge Instructions: DI for Asthma -- Adult Additional Instructions: You were seen in the ER for asthma exacerbation. We gave you steroids and breathing treatments which resolved your symptoms while you were here in the department. We did blood work, an EKG, and a chest x-ray which did not show any concerning findings. After our assessment, we do not believe you are having a medical emergency at this time, and we believe you are safe to go home. We gave you an albuterol inhaler here in the ER. We are also sending prescriptions for albuterol nebulizer vials, an albuterol inhaler, and a short course of prednisone to your pharmacy. Please take the whole course as prescribed. You really need a cranberry bog supervisor at this point because you have been on steroids too frequently and this is not healthy; you need a better way to control your asthma and they will have better ideas. We are giving you referral information for a cranberry bog supervisor here in this packet. Call their clinics [facility] (as well as your primary doctor's clinic), tell them you were seen in the ER for asthma exacerbation, and tell them you need an appointment [facility]. We are also providing referral information for a slip mixer who you really need to see to follow up on the heart rhythm problem you told us about (especially since you stated [facility] wanted you to be on blood thinners, which is a big deal). Please come back to the ER at any time (24 hours a day) for any new or worsening symptoms, like worsened wheezing/shortness of breath that is not relieved with your home medications, new chest pain, loss of consciousness, or other emergency concerns. If you are having severe or life threatening symptoms , or symptoms that make it unsafe to drive or have someone drive you, please call 911. - Post Discharge Activity
[2018-09-25] MEDS ORDERED: ALBUTEROL SO4 2.5/IPRATROPIUM 0.5 INH SOL 3 ML VIAL.NEB. NEB ONE ×2 (21:42→21:55)
[2018-09-25] MEDS ORDERED: methylPREDNISolone NA SUCC 125 MG/2 ML VIAL IVPUSH ONE (21:42)
[2018-09-25] MEDS ORDERED: ALBUTEROL SO4 8 GM HFA INHALER IH ONE (21:42)
[2018-09-25] MEDS ORDERED: methylPREDNISolone NA SUCC 125 MG/2 ML VIAL ONE (21:56)
[2018-09-25] MEDS ORDERED: predniSONE 20 MG TABLET (UD) PO ONE (21:59)
[2018-09-25] MEDS ORDERED: predniSONE 20 MG TABLET (UD) ONE (22:06)
[2018-09-25 22:22] LABS: BASO % 1.3 % (0-2.0); EOS % 3.2 % (0-4.5); HEMATOCRIT 41.1 % (35.4-49); HEMOGLOBIN 14.1 GM/dL (11.7-16.9); LYMPH % 25.7 % (8-40); MCH 30.2 pg (25.7-33.7); MCHC 34.4 g/dl (32.0-35.9); MEAN CELL VOLUME 87.8 fl (80-96); MEAN PLT VOLUME 8.4 fl (7.5-11.1); MONO % 8.4 % (3.8-10.2); NEUT % 61.4 % (42.8-82.8); PLATELET COUNT 247 K/MM3 (134-434); RBC 4.68 M/mm3 (4.00-5.60); RDW 13.5 % (11.9-15.9); WHITE BLOOD COUNT 9.3 K/mm3 (4.0-10.0)
[2018-09-25 22:49] LABS: PH,URINE 6.5 (5.0-8.0); URINE APPEARANCE CLEAR; URINE BILIRUBIN NEGATIVE (NEGATIVE); URINE COLOR YELLOW; URINE GLUCOSE (UA) NEGATIVE (NEGATIVE); URINE KETONE NEGATIVE (NEGATIVE); URINE LEUK ESTERASE NEGATIVE (NEGATIVE); URINE NITRITE NEGATIVE (NEGATIVE); URINE PROTEIN NEGATIVE (NEGATIVE)
[2018-09-25 22:56] LABS: ALBUMIN 3.5 g/dl (3.4-5.0); BILIRUBIN,TOTAL 0.6 mg/dL (0.2-1); BLOOD UREA NITROGEN 7.8 mg/dL (7-18); CALCIUM 8.5 mg/dL (8.5-10.1); CREATININE 1.1 mg/dL (0.55-1.3); POTASSIUM 3.9 mmol/L (3.5-5.1); TOT PROT 6.8 g/dl (6.4-8.2)
--- NOTE | 2018-09-25 23:31 | PDOC ---
Documentation entered by Michael Lea SCRIBE, acting as scribe for Jewell Akins MD. Jewell Akins MD: This documentation has been prepared by the Venu dunn Daniel, SCRIBE, under my direction and personally reviewed by me in its entirety. I confirm that the documentation accurately reflects all work, treatment, procedures, and medical decision making performed by me. Attending Attestation - Resident Resident Name: Salome Rhodes - ED Attending Attestation I have performed the following: I have examined & evaluated the patient, The case was reviewed & discussed with the resident, I agree w/resident's findings & plan - HPI HPI: 09/25/18 22:13 The patient is a 58 year old female with a past medical history of asthma ( admitted recently to ICU at [facility], never intubated), COPD, HTN, and HLD here today for evaluation of asthma exacerbation. Patient reports that he took steroids daily but ran out 3-4 weeks ago. He reports also running out of his inhaler and running out of his nebulizer treatment today. He notes a cough, wheezing, and shortness of breath today which is his typical asthma exacerbation. Patient also notes orthopnea in the past month requiring him to sleep on 4-5 pillows. Patient denies headache, lightheadedness. Denies fever, chills. Denies chest pain. Denies nausea, vomiting, diarrhea, abdominal pain. Allergies: NKA Social history: Patient confirms tobacco use half a pack a day for one month down from a pack a day for 43 years. PCP: Cornell Leal - Physicial Exam PE: 09/25/18 22:13 GENERAL: Awake, alert, and fully oriented, in no acute distress HEAD: No signs of trauma EYES: PERRLA, EOMI, sclera anicteric, conjunctiva clear ENT: Auricles normal inspection, hearing grossly normal, nares patent, oropharynx clear without exudates. Moist mucosa NECK: Normal ROM, supple, no lymphadenopathy, JVD, or masses LUNGS: +mild diffuse patchy wheezing. Breath sounds equal. No crackles HEART: Regular rate and rhythm, normal S1 and S2, no murmurs, rubs or gallops ABDOMEN: Soft, nontender, normoactive bowel sounds. No guarding, no rebound. No masses EXTREMITIES: Normal range of motion, no edema. No clubbing or cyanosis. No cords, erythema, or tenderness NEUROLOGICAL: Cranial nerves II through XII grossly intact. Normal speech, normal gait SKIN: Warm, Dry, normal turgor, no rashes or lesions noted. - Medical Decision Making 09/25/18 23:28 Pt comes with asthma exacerbation; states that he ran out of prednisone. Pt follows with a PMD at [facility]. Last seen there 3 mos ago. Pt has no financial systems administrator or chief of safety and protection. Pt is a 43 pack-year smoker. Pt cut back to 1/2 PPD. With one inhaler he is vastly improved in the ER. Pt has normal pulsox in the ER on RA. He was given an albuterol inhaler in the ER to replace his old one, and he walked out and eloped.
--- NOTE | 2018-09-26 12:42 | EKG ---
Test Reason : Blood Pressure : / mmHG Vent. Rate : 095 BPM Atrial Rate : 095 BPM P-R Int : 110 ms QRS Dur : 084 ms QT Int : 338 ms P-R-T Axes : 085 079 071 degrees QTc Int : 424 ms SINUS RHYTHM WITH SHORT LA WITH PREMATURE ATRIAL COMPLEXES NO PREVIOUS ECGS AVAILABLE Confirmed by KYM GARCIA MD ([id number]) on 09/26/2018 12:42:31 PM Referred By: Confirmed By:KMY GARCIA MD
== END 2018-09-25 23:34 | disposition left against medical advice (07) ==
LOC: JER 20:59
PROC: 3E0F7GC Introduction of Other Therapeutic Substance into Respiratory Tract, Via Natural or Artificial Opening (ICD-10-PCS; principal; 2018-09-25)
PROC: 3E0F7GC Introduction of Other Therapeutic Substance into Respiratory Tract, Via Natural or Artificial Opening (ICD-10-PCS; 2018-09-25)
DX: J45.901 Unspecified asthma with (acute) exacerbation (principal); J44.9 Chronic obstructive pulmonary disease, unspecified; I10 Essential (primary) hypertension; E78.5 Hyperlipidemia, unspecified; F17.210 Nicotine dependence, cigarettes, uncomplicated
CPT/HCPCS: 36415; 80053; 81003; 82550; 82553; 83880; 84484; 85025; 93005; 93010; 94640; 99281-25

== ENCOUNTER 2019-02-28 16:07 | Emergency (ER) | payer BC ==
[2019-02-28 16:16] VITALS: TEMP 98.9; BMI 40.1
--- NOTE | 2019-02-28 18:02 | PDOC ---
History of Present Illness - General Chief Complaint: Wound Stated Complaint: LT LEG PAIN Time Seen by Provider: 02/28/19 16:51 - History of Present Illness Initial Comments: Mr. Solis is a 58 y/o male with PMH significant for asthma and HTN, presenting today with left lateral knee pain and redness. Reports that he had a large pimple over the left knee five days ago that popped, and he noticed some redness and swelling and pain over the area. Denies pain radiation anywhere else. Denies streaking. Denies fever or chills. Denies chest pain/abdominal pain/urinary symptoms/changes in stool. Past History - Past Medical History Allergies/Adverse Reactions: Allergies Allergy/AdvReac Type Severity Reaction Status Date / Time No Known Allergies Allergy Verified 09/25/18 21:09 Home Medications: Ambulatory Orders Albuterol 0.083% Nebulizer Shanita [Ventolin 0.083% Nebulizer Soln -] 1 amp NEB PRN 08/21/18 Albuterol Sulfate Inhaler - [Ventolin Hfa Inhaler -] 1 - 2 inh PO QID PRN Benzonatate [Tessalon Pearls -] 100 mg PO TID #21 capsule 08/21/18 Prednisone [Prednisone 50 MG TABLETS] 50 mg PO ONCE #4 tablet 08/21/18 Fluticasone/Salmeterol [Advair 250-50 Diskus] 1 each IH BID #1 inhaler 09/25/18 Sulfamethoxazole/Trimethoprim [Bactrim Ds Tablet] 1 each PO BID 10 Days #20 tablet 02/28/19 Anemia: Yes Cardiac Disorders: Yes (AFIB) COPD: Yes CHF: No HTN: Yes - Psycho Social/Smoking Cessation Hx Smoking History: Current every day smoker Have you smoked in the past 12 months: No Number of Cigarettes Smoked Daily: 2 Information on smoking cessation initiated: Yes Hx Alcohol Use: No Drug/Substance Use Hx: No Review of Systems - Review of Systems Comments:: GENERAL/CONSTITUTIONAL: No fever or chills. No weakness._ HEAD, EYES, EARS, NOSE AND THROAT: No change in vision. No change in hearing. No sore throat._ CARDIOVASCULAR: No chest pain or shortness of breath_ RESPIRATORY: Denies cough, hemoptysis_ GASTROINTESTINAL: No nausea, vomiting, diarrhea or constipation._ GENITOURINARY: No dysuria, frequency, or change in urination._ MUSCULOSKELETAL: Reports redness, warmth, and pain over left lateral knee. No neck or back pain._ SKIN: No rash_ NEUROLOGIC: No headache, vertigo, loss of consciousness, or change in strength/ sensation._ ENDOCRINE: No increased thirst. No abnormal weight change_ HEMATOLOGIC/LYMPHATIC: No anemia. ALLERGIC/IMMUNOLOGIC: No hives or skin allergy._ *Physical Exam - Vital Signs Last Vital Signs Temp Pulse Resp BP Pulse Ox 98.9 F 104 H 20 145/68 97 02/28/19 16:11 02/28/19 16:11 02/28/19 16:11 02/28/19 16:11 02/28/19 16:11 - Physical Exam Comments: GENERAL: Awake, alert, and oriented to person/place/time, in no acute distress_ HEAD: No signs of trauma, normocephalic, atraumatic _ EYES: PERRLA, EOMI, sclera anicteric, conjunctiva clear_ ENT: Hearing grossly normal, nares patent, oropharynx clear without exudates. No uvular deviation. Moist mucosa_ NECK: Normal ROM, supple, no lymphadenopathy, JVD, or masses_ LUNGS: No distress, speaks in full sentences, clear to auscultation bilaterally _ HEART: Regular rate and rhythm, normal S1 and S2, no murmurs appreciated, peripheral pulses normal and equal bilaterally._ ABDOMEN: Soft, nontender, normoactive bowel sounds. No guarding, no rebound. No masses_ EXTREMITIES: 1 cm wound over left lateral knee with surrounding 3 cm erythema. Positive TTP left lateral knee. Normal range of motion, no edema. No clubbing or cyanosis_ NEUROLOGICAL: Cranial nerves II through XII grossly intact. Normal speech, normal gait, no focal sensorimotor deficits _ SKIN: Warm, Dry, normal turgor, no rashes or lesions noted_ ED Treatment Course - LABORATORY CBC & Chemistry Diagram: 02/28/19 18:18 02/28/19 18:18 - RADIOLOGY Radiology Studies Ordered: Category Date Time Status KNEE 3 POS-LEFT [RAD] Stat Radiology 02/28/19 17:28 Ordered Medical Decision Making - Medical Decision Making 02/28/19 18:03 58M presenting with 5 days of erythema and pain over left lateral knee. -bactrim -cbc, cmp 02/28/19 19:22 Labs reviewed. WBC wnl. Laboratory Last Values WBC 10.1 K/mm3 (4.0-10.0) H 02/28/19 18:18 RBC 4.56 M/mm3 (4.00-5.60) 02/28/19 18:18 Hgb 14.0 GM/dL (11.7-16.9) 02/28/19 18:18 Hct 40.9 % (35.4-49) 02/28/19 18:18 MCV 89.8 fl (80-96) 02/28/19 18:18 MCH 30.7 pg (25.7-33.7) 02/28/19 18:18 MCHC 34.2 g/dl (32.0-35.9) 02/28/19 18:18 RDW 13.8 % (11.9-15.9) 02/28/19 18:18 Plt Count 206 K/MM3 (134-434) 02/28/19 18:18 MPV 8.4 fl (7.5-11.1) 02/28/19 18:18 Absolute Neuts (auto) 7.1 K/mm3 (1.5-8.0) 02/28/19 18:18 Neutrophils % 70.6 % (42.8-82.8) 02/28/19 18:18 Lymphocytes % 18.7 % (8-40) D 02/28/19 18:18 Monocytes % 8.3 % (3.8-10.2) 02/28/19 18:18 Eosinophils % 1.3 % (0-4.5) 02/28/19 18:18 Basophils % 1.1 % (0-2.0) 02/28/19 18:18 Nucleated RBC % 1 % (0-0) H 02/28/19 18:18 Sodium 142 mmol/L (136-145) 02/28/19 18:18 Potassium 3.6 mmol/L (3.5-5.1) 02/28/19 18:18 Chloride 110 mmol/L (98-107) H 02/28/19 18:18 Carbon Dioxide 31 mmol/L (21-32) 02/28/19 18:18 Anion Gap 2 MMOL/L (8-16) L 02/28/19 18:18 BUN 8.5 mg/dL (7-18) 02/28/19 18:18 Creatinine 1.1 mg/dL (0.55-1.3) 02/28/19 18:18 Est GFR (CKD-EPI)AfAm 85.31 02/28/19 18:18 Est GFR (CKD-EPI)NonAf 73.61 02/28/19 18:18 Random Glucose 93 mg/dL (74-106) 02/28/19 18:18 Calcium 8.6 mg/dL (8.5-10.1) 02/28/19 18:18 Total Bilirubin 0.5 mg/dL (0.2-1) 02/28/19 18:18 AST 19 U/L (15-37) 02/28/19 18:18 ALT 25 U/L (13-61) 02/28/19 18:18 Alkaline Phosphatase 79 U/L (45-117) 02/28/19 18:18 Total Protein 6.1 g/dl (6.4-8.2) L 02/28/19 18:18 Albumin 3.2 g/dl (3.4-5.0) L 02/28/19 18:18 Pt reassessed. No joint tenderness or pain. Afebrile. Plan to d/c with 10 days of Bactrim BID, f/u PCP. Discharge - Discharge Information Problems reviewed: Yes Clinical Impression/Diagnosis: Cellulitis Qualifiers: Site of cellulitis: extremity Site of cellulitis of extremity: lower extremity Laterality: left Qualified Code(s): L03.116 - Cellulitis of left lower limb Disposition: HOME - Additional Discharge Information Prescriptions: Sulfamethoxazole/Trimethoprim [Bactrim Ds Tablet] 1 each PO BID 10 Days #20 tablet - Follow up/Referral Referrals: Dion Martin MD [Staff Physician] - - Patient Discharge Instructions Patient Printed Discharge Instructions: DI for Cellulitis -- Adult Additional Instructions: Please take Bactrim (antibiotic) two times per day for 10 days. Please make a follow up appointment with your primary care physician (referral provided here if you do not have one). If you experience any new, worsening, or concerning symptoms, including fever, chills, severe leg pain, worsening redness, drainage, or any other concerns, please return to the emergency department. - Post Discharge Activity
[2019-02-28] MEDS ORDERED: SULFAMETHOXAZOLE/TRIMETHOPRIM 800MG/160MG D.S. TABLET PO ONE (18:03)
--- NOTE | 2019-02-28 18:11 | PDOC ---
Documentation entered by Courtney Gipson SCRIBE, acting as scribe for Noemi Lindsay MD. Noemi Lindsay MD: This documentation has been prepared by the petersonibeBrandan Maria, SCRIBE, under my direction and personally reviewed by me in its entirety. I confirm that the documentation accurately reflects all work, treatment, procedures, and medical decision making performed by me. Attending Attestation - Resident Resident Name: Sravan Prado - ED Attending Attestation I have performed the following: I have examined & evaluated the patient, The case was reviewed & discussed with the resident, I agree w/resident's findings & plan, Exceptions are as noted - HPI HPI: 02/28/19 17:39 Patient is a 58 year old male with a significant PMH of asthma, COPD, HTN, and HLD who presents to the ED with left lateral calf wound.The patient reports that he has had 5 days of left lateral calf pain with associated increasing warmth and erythema that started after a large pimple popped. He denies any recent fevers, chills, headache or dizziness. He denies any recent nausea, vomiting, diarrhea, abdominal pain, or constipation. He denies any recent chest pain or shortness of breath. He denies any recent dysuria, frequency, urgency or hematuria. Allergies: NKA Past surgical history: None reported. Social History: Daily Smoker (2 cigarettes a day) - Physicial Exam PE: 02/28/19 18:09 Obese 58-year-old male presents for erythema on the lateral surface of his left knee that is surrounding a pustule with a eschar Head normocephalic atraumatic Neck supple Lungs no wheezing, no crackles Regular rate and rhythm S1-S2 Abdomen protuberant Extremities there is 3+ pitting edema Skin there is a lateral area of erythema that is about 8 cm x 4 cm adjacent to the knee. There is no significant fluctuance or induration. There is no patellar ballottement, the knee is not erythematous and has no direct abscess on it Neuro patient is alert and oriented x3 and ambulatory Psych appropriate - Medical Decision Making 02/28/19 18:36 Plan we will check his CBC and chemistries and start him on antibiotics 02/28/19 19:23 Patient's labs reviewed and essentially unremarkable 02/28/19 19:24 Patient refused knee x-ray and therefore it was cancelled Plan patient started on Bactrim and he will follow-up with his PCP and was given strict instructions to return if his wound does not improve or if he develops a fever 02/28/19 19:25
[2019-02-28 18:34] LABS: BASO % 1.1 % (0-2.0); EOS % 1.3 % (0-4.5); HEMATOCRIT 40.9 % (35.4-49); LYMPH % 18.7 % (8-40); MCH 30.7 pg (25.7-33.7); MCHC 34.2 g/dl (32.0-35.9); MEAN CELL VOLUME 89.8 fl (80-96); MEAN PLT VOLUME 8.4 fl (7.5-11.1); MONO % 8.3 % (3.8-10.2); NEUT % 70.6 % (42.8-82.8); PLATELET COUNT 206 K/MM3 (134-434); RBC 4.56 M/mm3 (4.00-5.60); RDW 13.8 % (11.9-15.9); WHITE BLOOD COUNT 10.1 K/mm3 (4.0-10.0)
[2019-02-28] MEDS ORDERED: ALBUTEROL SO4 2.5/IPRATROPIUM 0.5 INH SOL 3 ML VIAL.NEB. NEB ONE ×2 (18:46→18:48)
[2019-02-28 18:56] LABS: ALBUMIN 3.2 g/dl (3.4-5.0); BILIRUBIN,TOTAL 0.5 mg/dL (0.2-1); BLOOD UREA NITROGEN 8.5 mg/dL (7-18); CALCIUM 8.6 mg/dL (8.5-10.1); CREATININE 1.1 mg/dL (0.55-1.3); POTASSIUM 3.6 mmol/L (3.5-5.1); TOT PROT 6.1 g/dl (6.4-8.2)
[2019-02-28] MEDS ORDERED: SULFAMETHOXAZOLE/TRIMETHOPRIM 800MG/160MG D.S. TABLET ONE (19:05)
[2019-02-28 19:31] VITALS: BP 134/87; PULSE 103
== END 2019-02-28 19:32 | disposition home or self-care (01) ==
LOC: JER 16:07
PROC: 3E0F7GC Introduction of Other Therapeutic Substance into Respiratory Tract, Via Natural or Artificial Opening (ICD-10-PCS; principal; 2019-02-28)
DX: L03.116 Cellulitis of left lower limb (principal); I10 Essential (primary) hypertension; J44.9 Chronic obstructive pulmonary disease, unspecified; J45.998 Other asthma; D64.9 Anemia, unspecified; I48.91 Unspecified atrial fibrillation; F17.210 Nicotine dependence, cigarettes, uncomplicated
CPT/HCPCS: 36415; 80053; 85025; 87040; 99282-25